=== PATIENT | female | born 2000 | race Caucasian/White ===

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

== ENCOUNTER 2021-11-27 15:43 | Emergency (ER) | payer BC, OTHER, SELFPAY ==
[~2021-11-27] VITALS: Ht 157.5 cm; Wt 91.4 kg
[2021-11-27] MEDS ORDERED: RABIES VACCINE HUMAN 2.5 INTERNATIONAL UNITS/ML VIAL (90675) IM ONE (16:15)
[2021-11-27] MEDS ORDERED: RABIES IMMUNE GLOBULIN 1500 INTERNATIONAL UNIT/5ML VIAL (90375) IM ONE ×2 (16:15→16:30)
[2021-11-27] MEDS ORDERED: BOOSTRIX/ADACEL VACCINE (DIPHTH/PERTUSS/ACELL/TETANUS) 0.5ML SYR IM ONE (16:15)
[2021-11-27] MEDS ORDERED: RABIES IMMUNE GLOBULIN 300 INTERNATIONAL UNITS/1ML VIAL (90375) IM ONE (16:30)
[2021-11-27 17:24] VITALS: BP 95/55
== END 2021-11-27 17:27 | disposition home or self-care (01) ==
LOC: M ED 15:43
DX: Z20.3 Contact with and (suspected) exposure to rabies (principal); Z23 Encounter for immunization; S81.852A Open bite, left lower leg, initial encounter; W55.51XA Bitten by raccoon, initial encounter; Y92.099 Unspecified place in other non-institutional residence as the place of occurrence of the external cause; Y93.89 Activity, other specified; Y99.9 Unspecified external cause status; Z86.16 Personal history of COVID-19

== ENCOUNTER 2022-11-02 23:14 | Emergency (ER) | payer OTHER, SELFPAY ==
[2022-11-02 23:14] VITALS: BP 149/77
[2022-11-03] MEDS ORDERED: TETRACAINE 0.5% OPHTH SOLN 4ML OD ONE (01:10)
[2022-11-03] MEDS ORDERED: FLUORESCEIN OPHTH 1MG STRIP OD ONE (01:10)
[2022-11-03] MEDS ORDERED: ERYTHROMYCIN OPHTH OINT OD ONE (01:40)
[2022-11-03] MEDS ORDERED: ERYT5OIN25 OD (01:41)
== END 2022-11-03 02:02 | disposition home or self-care (01) ==
LOC: M ED 23:14
DX: S05.01XA Injury of conjunctiva and corneal abrasion without foreign body, right eye, initial encounter (principal); F12.10 Cannabis abuse, uncomplicated; Z79.899 Other long term (current) drug therapy

== ENCOUNTER → 2024-09-09 | Outpatient (REF) | payer BC, SELFPAY ==
[~2024-09-09] MED LIST: ERYT5OIN25 OD
[2024-09-09 16:35] LABS: HEPATITIS B SURFACE ANTIGEN NEGATIVE (NEGATIVE)
[2024-09-09 16:48] LABS: HIV 1&2 SCREEN NEGATIVE (NEGATIVE)
[2024-09-09 16:54] LABS: HEPATITIS C VIRUS ABY INDEX 0.13 INDEX (<0.8)
[2024-09-09 16:55] LABS: HEPATITIS B CORE ANTIBODY IGM NEGATIVE (NEGATIVE)
== END ==
LOC: M LAB REF 12:31
PROVIDERS: ATTEND Internal Medicine
DX: Z72.53 High risk bisexual behavior (principal)